=== PATIENT | female | born 1950 | race Caucasian/White ===

== ENCOUNTER 2024-06-25 09:28 | Day surgery (SDC) | payer MEDICARE, OTHER, SELFPAY ==
[2024-06-24 10:59] VITALS: BMI 25.0
--- NOTE | 2024-06-25 11:04 | ITS.CL.CARDI ---
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
Cardioversion
Procedure Report:
Date of Procedure: 06/25/24
Procedure: Cardioversion
Indication: Symptomatic atrial fibrillation
Performing Physician: Pramod Abdul MD
Technique: The patient was brought to the holding area. Signed informed consent was obtained. A time out was called and performed. The patient was anesthetized by the anesthesia service. Anticoagulation status was reviewed and appropriate. R2 pads
were placed anteriorly and posteriorly. A 200 J synchronized biphasic shock restored normal sinus rhythm without significant bradycardia. There were no complications.
Conclusion: Uncomplicated cardioversion from atrial fibrillation to sinus rhythm.
Recommendation: Routine post cardioversion care. 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
== END 2024-06-25 12:00 | disposition home or self-care (01) ==
LOC: CATH 09:28
PROVIDERS: ATTENDING PHYSICIAN Internal Medicine Cardiovascular Disease; FAMILY PHYSICIAN Family Medicine; OTHER PHYSICIAN Student in an Organized Health Care Education/Training Program
DX: I48.0 Paroxysmal atrial fibrillation (principal); I10 Essential (primary) hypertension; E78.5 Hyperlipidemia, unspecified; K22.70 Barrett's esophagus without dysplasia; F41.9 Anxiety disorder, unspecified; Z86.018 Personal history of other benign neoplasm; Z79.01 Long term (current) use of anticoagulants
CPT/HCPCS: 92960; 93005

== ENCOUNTER → 2024-12-15 12:48 | Outpatient (REF) | payer MEDICARE, OTHER, SELFPAY ==
[2024-12-15 13:36] LABS: % Basophils 0.4 % (0-2); % Eosinophils 1.5 % (0-6); % Immature Granulocytes 0.2 % (0-0.5); % Monocytes 8.2 % (1.7-9.3); % Neutrophils 53.7 % (42.2-75.2); Absolute Eosinophils 0.1 10^3/uL (0-0.7); Absolute Lymphocytes 1.7 10^3/uL (1.2-3.4); Absolute Monocytes 0.4 10^3/uL (0.1-0.6); Absolute Neutrophils 2.6 10^3/uL (1.4-6.5); Hematocrit 41.1 % (37.0-47.0); Hemoglobin 13.8 g/dL (12.0-16.0); Mean Corp Hgb Conc. 33.6 g/dL (33.0-37.0); Mean Corpuscular Hgb 30.8 pg (27.0-31.0); Mean Corpuscular Volume 91.7 fL (81.0-99.0); Mean Platelet Volume 9.8 fL (7.4-10.4); Nucleated Red Blood Cells % 0 %; Platelet Count 217 10^3/uL (130-400); Red Blood Cell Count 4.48 10^6/uL (4.20-5.40); Red Cell Dist. Width 12.9 % (11.5-14.5); White Blood Cell Count 4.8 10^3/uL (4.8-10.8)
[2024-12-15 13:47] LABS: ALT (SGPT) 19 U/L (0-35); AST (SGOT) 24 U/L (14-36); Albumin 4.4 g/dl (3.5-5.0); Alkaline Phosphatase 43 U/L (38-126); Blood Urea Nitrogen 16 mg/dl (7-17); Calcium 9.4 mg/dl (8.4-10.2); Carbon Dioxide 29 mmol/L (22-30); Chloride 109 mmol/L (98-107); Glucose 74 mg/dl (70-99); Potassium 4.7 mmol/L (3.5-5.1); Sodium 144 mmol/L (135-145); Total Bilirubin 1.4 mg/dl (0.2-1.3); Total Protein 6.7 g/dl (6.3-8.2); eGFR > 60.00
== END ==
LOC: SDSPAT 12:48
PROVIDERS: ATTENDING PHYSICIAN Internal Medicine Cardiovascular Disease; FAMILY PHYSICIAN Family Medicine; OTHER PHYSICIAN Student in an Organized Health Care Education/Training Program
DX: I48.0 Paroxysmal atrial fibrillation (principal); R00.2 Palpitations; Z82.49 Family history of ischemic heart disease and other diseases of the circulatory system; K22.719 Barrett's esophagus with dysplasia, unspecified
CPT/HCPCS: 36415; 80053; 85025; 86850; 86900; 86901; 93005

== ENCOUNTER 2024-12-30 11:09 | Day surgery (SDC) | payer MEDICARE, OTHER, SELFPAY ==
[2024-12-15 13:11] VITALS: BMI 25.4
--- NOTE | 2024-12-15 14:12 | HPS.HSE ---
Family Physician
-
Family Physician: NO INTERVIEW UNKNOWN
Chief Complaint
-
Paroxysmal atrial fibrillation.
History of Present Illness
The patient is a 74 year old female presenting today for paroxysmal atrial fibrillation. The patient reports symptoms such as disturbing palpitations, minor chest discomfort, dyspnea on exertion, and lethargy all likely secondary to this
diagnosis. She previously underwent 3 cardioversions for her arrhythmia, with the last occurring in May 2024. She does report a significant family history of atrial fibrillation with associated stroke. She is on current pharmacological therapy
with Metoprolol Succinate. She reports compliance with Eliquis for oral anticoagulation due to a CHADS-VASc of 5. She notes that her atrial fibrillation symptoms greatly interfere with her activities of daily living and overall impact her quality of
life. She is interested in pursuing with a Medtronic atrial fibrillation ablation for more definitive arrhythmia management. She denies any current complaints today such as chest pain and shortness of breath at rest, nausea, vomiting, diarrhea,
lightheadedness, dizziness, cough, sore throat, or fever.
Medical History
Past Medical History
Past Medical History: Reports Other
Additional Past Medical History:
1. Paroxysmal atrial fibrillation, status post cardioversion x3; pharmacological therapy with Metoprolol Succinate and oral anticoagulation with Eliquis.
2. Hypertension.
3. Hyperlipidemia.
4. Coronary artery disease per elevated coronary calcium score.
5. GERD.
5. 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
6. Irritable bowel syndrome with diarrhea.
7. Migraines.
8. Peripheral neuropathy.
9. Osteoarthritis.
10. T12 schwannoma, status post excision 2019.
11. Squamous cell carcinoma, status post excision.
12. Anxiety.
13. Osteopenia.
14. Insomnia.
15. History of infrequent tobacco abuse.
Past Surgical History: Reports Other
Additional Past Surgical History:
1. Cardioversion x3.
2. Schwannoma excision.
3. Lipoma excision from left flank.
4. Breast biopsy (benign).
5. D&C.
6. Squamous cell carcinoma excision.
7. Colonoscopy x3.
8. Endoscopy x3.
Social History
Tobacco: Former Smoker (She is a former 'social' cigarette smoker who quit tobacco products altogether in 1994. )
Alcohol: Other (Rare use reported. )
Personal:
Living: Other (She lives with her in a 2 story home. )
Family History
Family History: Other (She reports a strong family history of atrial fibrillation and stroke. )
Allergies / Home Medications
Allergy/Medication List:
Home medications:
1. Alprazolam 0.5 mg p.o. at bedtime.
2. Gabapentin 300 mg p.o. four times a day.
3. Metoprolol succinate 25 mg p.o. at bedtime.
4. Amlodipine 2.5 mg p.o. daily.
5. Eliquis 5 mg p.o. twice a day.
6. Azelastine 1 spray intranasal daily as needed.
7. Cholecalciferol 5000 units p.o. daily.
8. Rosuvastatin 20 mg p.o. every evening.
9. Tretinoin 1 application topical at bedtime.
10. Zinc acetate 50 mg p.o. daily.
Allergies: No known allergies.
Review of Systems
-
A 12 point ROS was completed and negative except as noted: Yes
Physical Exam
Vital Signs
Blood pressure 140/78. Heart rate 53. Respirations 18. Pulse ox 98% on room air.
Height 5 feet, 7 inches. Weight 73.6 kg. BMI 25.4.
Physical Exam
General: Well Developed, Well Nourished and No Apparent Distress
HEENT: NormoCephalic, Moist mucous membranes, Atraumatic and PERRLA
Respiratory: Clear
Cardiac: Bradycardia
GI: Soft, Non Tender and Non Distended
Musculoskeletal: No Edema and Normal Gait & Station
Skin: Warm and Dry
Neuro: AO x 3 and Nonfocal/grossly intact
Laboratory Results
-
DIAGNOSTIC STUDIES as of 12/15/2024: White blood cell count 4.8. Hemoglobin 13.8. Platelet count 217,000. Sodium 144. Potassium 4.7. BUN 16. Creatinine 0.8. Glucose 74. Calcium 9.4. AST 24. ALT 19. Albumin 4.4. Type and screen B positive.
EKG 12/15/2024: Sinus bradycardia. Low voltage QRS across precordial leads. Septal infarct, cited on or before 06/24/2024.
Echocardiogram 05/11/2021: Normal biventricular size and systolic function without regional wall motion abnormality. No significant valvular disease. No prior study available for comparison.
Stress echocardiogram 05/05/2021: Normal Stress Echocardiogram to 8 METS. Low risk stress test. No prior study for comparison.
Impression/Plan
-
IMPRESSION/PLAN:
1. Paroxysmal atrial fibrillation: The patient is in need of a Medtronic atrial fibrillation ablation with Dr. Monty Mckinney on 12/25/2024. The benefits and risks of the procedure have been explained to the patient. The patient understands these
risks and wishes to proceed. She will not have to undergo a pre-procedural transesophageal echocardiogram as she has been compliant with her home oral anticoagulation. She is aware to continue her Eliquis uninterrupted up until the night prior to
her ablation.
[2024-12-30] VITALS (20 sets, daily range): BP systolic 107–156; BP diastolic 63–92
[2024-12-30 15:26] LABS: ACT-LR - POC 397 Seconds (116-155)
[2024-12-30 15:51] LABS: ACT-LR - POC 384 Seconds (116-155)
--- NOTE | 2024-12-30 16:19 | ITS.CL.ABL ---
Manager Unix - Ablation
Ablation
Procedure Report:
AFIB / A flutter ablation:
Ms. Rodriguez is a very pleasant 74 yr old woman with medical history significant for symptomatic atrial fibrillation that has now progressed to persistent AF is here in the EP lab for atrial fibrillation / flutter ablation
Date of Procedure:
12/30/2024
Indications:
Symptomatic persistent atrial fibrillation
Pre-Operative Diagnosis:
Persistent atrial fibrillation
Post-Operative Diagnosis:
Persistent atrial fibrillation
Procedure Performed:
Atrial fibrillation ablation with wide area circumferential ablation (WACA) approach for pulmonary vein isolation
Posterior wall isolation
Performing Physician:
Monty Mckinney MD
Assistants:
EP staff
Anesthesia:
See anesthesia records
Detailed Description of the Procedure:
Written informed consent was obtained from the patient after a full explanation of the risks and benefits of the procedure including the risks of sedation and anesthesia.
The patient was brought to the electrophysiology laboratory in stable condition in fasting state. Continuous electrocardiographic and hemodynamic monitoring was initiated.
The initial rhythm was atrial fibrillation.
The procedure site was meticulously prepared with surgical scrub and allowed to dry with no pooling. Sterile draping was applied to cover the procedure site. The image intensifier was draped with sterile bag and positioned over the patient. After
infusion of local anesthetic, vascular access was obtained under ultrasound guidance and sheaths were placed over guide wire as detailed below.
The images of the ultrasound of the femoral vessels were stored in patient chart.
Sheath and Catheter Placement:
In the right femoral vein, an 8-Libyan sheath was placed under ultrasound guidance for use during the ablation procedure. And mapping catheter was intermittently placed in the high right atrium, right ventricle, left atrium and left ventricle. In
the right femoral vein, a 9-Fr sheath was placed for use during intracardiac echo procedure.
The sheaths were upgraded as needed during the case. Intracardiac catheters were positioned using direct fluoroscopic guidance.� ICE catheter was placed in RA. The following catheters / sheaths were placed
Sheaths:
��������� Agilis sheath in right femoral vein upgraded from 8Fr in right femoral vein
��������� 9Fr in left femoral vein
Catheters:
��������� The Affera Sphere 9 catheter -bidirectional D/F� - at locations of HRA, RV, LA and LV.
��������� ICE catheter -AccuNav -� at locations of RA, SVC, and RV.
Heparin was initiated after the access was obtained.
Intracardiac ECHO:
An 8-Libyan AcuNav intracardiac ECHO (ICE) probe was advanced through the 9-Libyan sheath in the left femoral vein into the right atrium under fluoroscopic and ICE ultrasound image guidance and a baseline ECHO study was performed. The left atrial
size was dilated. There was trace tricuspid regurgitation. The aortic valve was grossly normal. There was mild to moderately reduced left ventricular systolic function. There is no pericardial effusion. The ADA has baseline low velocities. The
pulmonary had good flow identified.
During the procedure, ICE was used for monitoring of complications, guidance of trans-septal puncture, monitor the catheter position and tracking ablation lesions. No change in the pericardial space noted throughout the procedure.
Trans-septal Puncture:
Heparin was initiated and infused to maintain appropriate ACT. A J-tipped guidewire was advanced through into the superior vena cava under fluoroscopic and ICE guidance. The Agilis sheath was advanced into the superior vena cava over a guidewire.
The BRK needle was placed inside the Agilis sheath.� The apparatus was withdrawn until it was in contact with the fossa ovalis. The position was adjusted based on fluoroscopy and ultrasound images from ICE. Under fluoroscopic, hemodynamic and ICE
ultrasound guidance, left atrium was cannulated by advancing the needle. Once atrial septum was cannulated, the needle was pulled back and the guide wire was advanced through the needle into the left atrium. The guide wire was advanced into the left
superior pulmonary vein. Both the sheath and the dilator was advanced into the left atrium. The dilator with the needle was withdrawn. Blood was aspirated from the Agilis sheath and arterial blood confirmed. The sheath was flushed. Saline injection
noted into the left atrium on ICE. The waveform of the LA pressure was recorded. The mapping catheter was advanced in the Agilis sheath into the left pulmonary vein.
3D Electroanatomic Mapping:
Using the Sphere 9 Affera catheter advanced through Agilis sheath into the left atrium, an electroanatomic map (EAM) of the left atrium was created using [employer]� mapping system with Prism-1 software. The map was used for localization of catheter
position and tacking of ablation lesions. The EAM of the left atrium showed a total of 4 PVs with two left and the two right sided pulmonary veins with all electrically connected to the body the LA. It showed scattered scar on the posterior and
anterior [place] of the LA. The LA was dilated in size.
Following the EAM, preparation were made for ablation.
Ablation:
Ablation # 1: Pulmonary vein Isolation:
Pulsed field ablation was performed using an open irrigation, bidirectional, contact sensing, dual energy ablation catheter (Sunivaa sphere -9) by completing the circumferential lesions around the left and right pulmonary veins achieving pulmonary
vein isolation.
Cardioversion:
Due to the persistence of atrial fibrillation during the case, the decision was made to proceed with a cardioversion followed by the remainder of the ablation as detailed below. Therefore, a 200J shock was delivered to the chest via Zoll patches
placed with catholic of sinus rhythm. The patient remained hemodynamically stable throughout.
Confirmation of the PVI and bidirectional block:
Following achievement of entrance block at the pulmonary veins, pacing from the Sphere 9 affera catheter in each of the four veins at 20 milliamps for 4 milliseconds showed entrance and exit block.
The LA was mapped with The [employer]� mapping system with Prism-1 software in sinus rhythm confirming the line of block at the ablation lesions lines.
There was extensive scar noted in the posterior wall with slowing of conduction making a substance for reentry flutter.
Ablation # 2: Roof line Formation:
There was a clear channel of electrical activity left in the posterior wall with multiple CFAE and AF areas on the roof and ablation in that area increased the risk of atrial flutter and decision was made to create a roof line to block a slow
conduction. A set of pulsed field ablations were placed on the roof line connecting the left superior pulmonary vein ablation lesions to the right superior pulmonary vein lesions rings.
Ablation # 3: Posterior wall isolation with the Box lesions set Formation:
There was a significant fractionation seen in the posterior wall and LA AF foci along with CFAE made it clear as the posterior wall is critical in maintaining the atrial fibrillation and the decision was made to isolate the posterior wall by
creating a �Box� lesions.
A set of Pulsed field ablations were placed on the floor line connecting the left inferior pulmonary vein ablation lesions to the right inferior pulmonary vein lesions rings.
The sphere 9 in the posterior wall showed entrance block and the pacing from the posterior wall showed no exit from the box lesions confirming the exit block.
EP study:
Sinus Node Function: The sinus node functions are within acceptable normal range.
Atrioventricular Ronny Function: �Normal AV conduction noted.
Procedure End
ICE study was done again that showed no epicardial accumulation. No complications noted.
Following the completion of the EP study, catheters were removed. Protamine 30 mg was given at the end of the procedure and ACT was checked repeatedly. The sheaths were removed and hemostasis achieved with VASCADE and manual compression after
acceptable ACT is achieved.
Left atrial Pressure:
Pre-Procedure: Mean LA pressure was 10mmHg
Post-Procedure: Mean LA pressure was 13mmHg
Post-Procedure: Mean RA pressure was 6mmHg
Fluoro Time:
0.1min
Estimated Blood loss:
<10 cc
Specimens Removed:
None.
Implants / Devices:
None
Urine output:
None
Packs / Drains/ Tubes:
None
Instrument / Sponge Count Correct:
Yes
Complications of the Procedure:
None
Condition of Patient at Time of Transfer:
Hemodynamically stable with no neurological or vascular compromise.
Summary:
��������� Successful atrial fibrillation ablation with circumferential bidirectional line of block at pulmonary vein antra (Pulmonary vein isolation), roof flutter line creation, Posterior wall isolation.
Figures from the Procedure:
Figure 1: The electroanatomic mapping (EAM) of the left atrium with bipolar voltage (purple indicates normal electrical activity with red as no myocardial muscle electric activity indicating a line of block or scar.
--- NOTE | 2024-12-30 17:25 | W.PN.UPDATE ---
Update Note
Progress Note Update
Pt seen post PFA. RIght groin site with vascade closure. No ht/bleeding. Post EKG SB 58, no acute changes. Resume eliquis tonight at 10pm. Followup at [facility] as scheduled. Home later today if groin site/tele remain stable.
[2024-12-30] MEDS: ANESTHETIC LOZENGE 1 LOZENGE PO (18:31)
== END 2024-12-30 19:05 | disposition home or self-care (01) ==
LOC: CATH 11:09
PROVIDERS: ATTENDING PHYSICIAN Internal Medicine Cardiovascular Disease; FAMILY PHYSICIAN Family Medicine; OTHER PHYSICIAN Student in an Organized Health Care Education/Training Program
DX: I48.19 Other persistent atrial fibrillation (principal); I25.10 Atherosclerotic heart disease of native coronary artery without angina pectoris; R00.2 Palpitations; E78.5 Hyperlipidemia, unspecified; I45.9 Conduction disorder, unspecified; F41.9 Anxiety disorder, unspecified; I10 Essential (primary) hypertension; K58.0 Irritable bowel syndrome with diarrhea; M19.90 Unspecified osteoarthritis, unspecified site; M85.80 Other specified disorders of bone density and structure, unspecified site; Z79.01 Long term (current) use of anticoagulants; Z79.899 Other long term (current) drug therapy; Z82.3 Family history of stroke; Z86.018 Personal history of other benign neoplasm; Z87.19 Personal history of other diseases of the digestive system; Z87.891 Personal history of nicotine dependence
CPT/HCPCS: C1769; C1733; C1892; C1759; C1766; 85347; 86900; 86901; 93005; 93655; 93656; 93657